=== PATIENT | male | born 1995 | race Caucasian/White ===

== ENCOUNTER 2016-06-03 04:15 | Emergency (ER) | payer SELFPAY ==
[2016-06-03 04:20] VITALS: BMI 25.7
[2016-06-03] MEDS ORDERED: NS 1,000 ML IV ONE (04:22)
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
[2016-06-03 04:28] VITALS: TEMP 97.6
[2016-06-03] MEDS ORDERED: Pharmacy Review for Metformin - IV Contrast Given SCH (05:00)
[2016-06-03 05:01] LABS: AUTOMATED BASOPHIL 0.8 % (0-2); AUTOMATED EOSINOPHIL 6.8 % (0-5); AUTOMATED LYMPH 23.4 % (17-44); AUTOMATED MONOCYTE 7.5 % (3-10); AUTOMATED NEUTROPHIL 61.5 % (45-76); MPV 9.2 fL (7.4-10.4)
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
[2016-06-03] MEDS ORDERED: KETOROLAC TROMETH 30 MG/ML VIAL IV ONE (05:27)
[2016-06-03 05:30] LABS: BLOOD UREA NITROGEN 15 MG/DL (9-20); CALC CORRECTED 9.1 MG/DL (8.4-10.2); CALCULATED OSMOLALITY 266 MOs/Kg (270-290); CHLORIDE 103 mEq/L (98-107); ETOH-MGDL < 10 mg/dL; GLUCOSE 80 mg/dL (70-99); SODIUM LEVEL 138 mEq/L (137-146); TOTAL PROTEIN 6.7 G/DL (6.3-8.2)
[2016-06-03 06:16] VITALS: BP 100/46; PULSE 75
== END 2016-06-03 06:15 | disposition home or self-care (01) ==
LOC: ED 04:15
DX: Z04.1 Encounter for examination and observation following transport accident (principal); F19.10 Other psychoactive substance abuse, uncomplicated; F12.10 Cannabis abuse, uncomplicated; F17.200 Nicotine dependence, unspecified, uncomplicated; R07.9 Chest pain, unspecified; R10.9 Unspecified abdominal pain
CPT/HCPCS: 36415; 70450; 71260; 72125; 74177; 80053; 80307; 85025; 96361; 96374; 99283; A9698; J1885